=== PATIENT | male | born 1990 | race Caucasian/White ===

== ENCOUNTER 2016-07-25 12:35 | Emergency (ER) | payer SELFPAY ==
[2016-07-25 14:52] VITALS: BP 135/96
--- NOTE | 2016-07-25 22:08 | ED ---
Chin Prabhakar Aidan, scribed for Jamey Foy MD on 07/25/16 at 1445 . Complex/Multi-Sys Presentation - HPI Summary HPI Summary: 25 y/o male presents to the ED with a complaint of acute, constant, moderate abdominal pain and acute, constant moderate pain in his right arm associated with his PICC line that he was given 4 months ago after being diagnosed with cellulitis to administer abx. The PICC line was due to be removed 2-3 months ago , according to the nurses note. Additionally, he has right lower back pain and some chest pain that resulted from him falling down stairs yesterday. His back pain is aggravated by palpation. - History Of Current Complaint Chief Complaint: EDAbdPain Time Seen by Provider: 07/25/16 13:53 Hx Obtained From: Patient Onset/Duration: Sudden Onset - abdominal pain, back and chest pain, Gradual Onset - right arm pain asociated with PICC line, Lasting Days, Still Present Timing: Constant Severity Currently: Moderate Severity Initially: Moderate Location: Pain At: - right arm, right lower back, diffuse at chest, diffuse in abdomen Character: Unable To Describe Aggravating Factor(s): palpating the lower back aggravates lower back pain Alleviating Factor(s): unknown Associated Signs And Symptoms: Positive: Abdominal Pain, Back Pain, Other - right arm pain, some chest pain - Allergies/Home Medications Allergies/Adverse Reactions: Allergies Allergy/AdvReac Type Severity Reaction Status Date / Time No Known Allergies Allergy Verified 07/25/16 13:58 Home Medications: Home Medications NK [No Home Medications Reported] 07/25/16 [History Confirmed 07/25/16] PMH/Surg Hx/FS Hx/Imm Hx Infectious Disease History: No Infectious Disease History: Denies: Traveled Outside the [place] in Last 30 Days - Family History Known Family History: Positive: Hypertension - Social History Occupation: Unemployed Lives: Alone Alcohol Use: Occasionally Alcohol Amount: beer Substance Use Type: Reports: None Smoking Status (MU): Heavy Every Day Tobacco Smoker Review of Systems Constitutional: Negative Eyes: Negative ENT: Negative Cardiovascular: Negative Respiratory: Negative Positive: Abdominal Pain. Negative: Vomiting, Diarrhea, Nausea Genitourinary: Negative Positive: Arthralgia - right lower back pain, some chest pain, Myalgia - right arm pain associated with PICC line. Negative: Decreased ROM, Edema Skin: Negative Neurological: Negative Psychological: Normal All Other Systems Reviewed And Are Negative: Yes Physical Exam Triage Information Reviewed: Yes Vital Signs On Initial Exam: Initial Vitals Temp Pulse Resp BP Pulse Ox 98.6 F 86 24 152/86 100 07/25/16 12:41 07/25/16 12:41 07/25/16 12:41 07/25/16 12:41 07/25/16 12:41 Vital Signs Reviewed: Yes Appearance: Positive: Well-Appearing, No Pain Distress Skin: Positive: Warm, Skin Color Reflects Adequate Perfusion, Dry Head/Face: Positive: Normal Head/Face Inspection Eyes: Positive: Normal ENT: Positive: Normal ENT inspection Neck: Positive: Supple, Nontender Respiratory/Lung Sounds: Positive: Clear to Auscultation, Breath Sounds Present Cardiovascular: Positive: RRR Abdomen Description: Positive: Nontender, Soft Bowel Sounds: Positive: Present Musculoskeletal: Positive: Normal Neurological: Positive: Normal Psychiatric: Positive: Affect/Mood Appropriate - Parrish Coma Scale Coma Scale Total: 15 Diagnostics - Vital Signs Vital Signs Temp Pulse Resp BP Pulse Ox 07/25/16 14:00 75 137/93 99 07/25/16 13:49 98.6 F 81 16 135/96 99 07/25/16 13:47 72 100 07/25/16 13:46 135/96 07/25/16 12:41 98.6 F 86 24 152/86 100 - Laboratory Lab Statement: Any lab studies that have been ordered have been reviewed, and results considered in the medical decision making process. Complex Multi-Symp Course/Dx Course Of Treatment: The patient clearly has a low back strain. Ibuprofen is recommended. His PICC line was removed and his arm pain went completely away. The site is clean. - Diagnoses Provider Diagnoses: Low back strain Discharge - Discharge Plan Condition: Stable Disposition: HOME Discharge Disposition Comment: Ibuprofen is recommended. Please follow up with your primary within 2 days Patient Education Materials: Low Back Strain (ED) Referrals: No Primary Care Phys,NOPCP [Primary Care Provider] - The documentation as recorded by the Chin zaragoza Aidan accurately reflects the service I personally performed and the decisions made by me, Jamey Foy MD.
== END 2016-07-25 14:50 | disposition home or self-care (01) ==
LOC: ED 12:35
DX: S39.012A Strain of muscle, fascia and tendon of lower back, initial encounter (principal); R10.9 Unspecified abdominal pain; M54.9 Dorsalgia, unspecified; R07.9 Chest pain, unspecified; F17.210 Nicotine dependence, cigarettes, uncomplicated; X58.XXXA Exposure to other specified factors, initial encounter; Y93.9 Activity, unspecified; Y92.9 Unspecified place or not applicable; Y99.9 Unspecified external cause status
CPT/HCPCS: 99282

== ENCOUNTER → 2018-01-07 15:49 | Emergency (ER) | payer OTHER ==
[2018-01-07 17:02] VITALS: BP 131/72
--- NOTE | 2018-01-07 17:02 | ED ---
Throat Pain/Nasal Congestion - HPI Summary HPI Summary: Patient is a 27-year-old male who presents emergency department for dental pain times several days. Pt. states he is new to the area and does not have a dentist. History of narcotic addiction. Pt. states he has had increased pain over the last few days. Has been taking tylenol and motrin. Denies facial swelling, fever, N/V. Symptoms are mild in severity. Touching affected area makes sxs worse. Nothing makes sxs better. - History of Current Complaint Chief Complaint: EDDentalPain Time Seen by Provider: 01/07/18 16:38 Hx Obtained From: Patient - Allergies/Home Medications Allergies/Adverse Reactions: Allergies Allergy/AdvReac Type Severity Reaction Status Date / Time No Known Allergies Allergy Verified 07/25/16 13:58 PMH/Surg Hx/FS Hx/Imm Hx Previously Healthy: Yes Infectious Disease History: No Infectious Disease History: Denies: Traveled Outside the [place] in Last 30 Days - Family History Known Family History: Positive: Hypertension - Social History Occupation: Unemployed Lives: With Family Alcohol Use: Occasionally Alcohol Amount: beer Substance Use Type: Reports: None Smoking Status (MU): Heavy Every Day Tobacco Smoker Review of Systems Constitutional: Negative Negative: Fever, Chills Positive: Dental Pain Gastrointestinal: Negative Negative: Vomiting, Nausea All Other Systems Reviewed And Are Negative: Yes Physical Exam Triage Information Reviewed: Yes Vital Signs On Initial Exam: Initial Vitals Temp Pulse Resp BP Pulse Ox 98.1 F 70 16 157/88 99 01/07/18 16:10 01/07/18 16:10 01/07/18 16:10 01/07/18 16:10 01/07/18 16:10 Vital Signs Reviewed: Yes Appearance: Positive: Well-Appearing - Pt. sitting in chair in NAD. S.O present. Skin: Positive: Warm, Dry Head/Face: Positive: Normal Head/Face Inspection Eyes: Positive: Normal, EOMI Dental: Positive: Other - Poor dentition throughout. Top/bottom left posterior gums are erythematous and edematous. No drainable abscess. No trismus or facial swelling. N opain or swelling under the tongue. Neck: Positive: Supple, Nontender, No Lymphadenopathy Neurological: Positive: Normal, CN Intact II-III Psychiatric: Positive: Affect/Mood Appropriate Diagnostics - Vital Signs Vital Signs Temp Pulse Resp BP Pulse Ox 01/07/18 16:10 98.1 F 70 16 157/88 99 - Laboratory Lab Statement: Any lab studies that have been ordered have been reviewed, and results considered in the medical decision making process. EENT Course/Dx - Course Course Of Treatment: Pt. presenting for increased dental pain. He is afebrile and well appearing. Will start on penvk. Advised tylenol and motrin for pain as directed. Advised to f.u with dentist. To apply warm compresses. To return to ER if sxs change or worsen. - Differential Diagnoses Differential Diagnoses: Dental Abscess, Dental Caries - Diagnoses Provider Diagnoses: Dental caries Discharge - Sign-Out/Discharge Documenting (check all that apply): Patient Departure - Discharge Plan Condition: Good Disposition: HOME Prescriptions: Penicillin VK 500 MG TAB(NF) [Penicillin VK 500 mg Tab] 500 mg PO QID #40 tab Patient Education Materials: Dental Abscess (ED) Referrals: No Primary Care Phys,NOPCP [Primary Care Provider] - [facility] [Outside] Additional Instructions: Schedule a follow up appointment with a dentist Take antibiotic as directed Rotate between tylenol and motrin every 3 hours as directed for pain control Apply warm compresses Return to ER if symptoms change or worsen - Billing Disposition and Condition Condition: GOOD Disposition: Home
== END | disposition home or self-care (01) ==
LOC: ED 15:49
DX: K02.9 Dental caries, unspecified (principal); F17.200 Nicotine dependence, unspecified, uncomplicated
CPT/HCPCS: 99282